=== PATIENT | male | born 1985 | race African-American/Black ===

== ENCOUNTER 2025-06-05 02:22 | Inpatient (IN) | payer SELFPAY ==
[~2025-06-05] VITALS: Ht 167.6 cm; Wt 63.5 kg
[2025-06-05] VITALS (7 sets, daily range): BP systolic 94–121; BP diastolic 59–79; PULSE 55–80; RESP 16–20; TEMP 36–36.7516; O2SAT 97–100
[2025-06-05 03:30] LABS: PLATELET 323 x1000/uL (130-400); RED BLOOD CELL COUNT 4.66 mill/uL (4.7-6.1); RED CELL DISTRIBUTION WIDTH 13.3 % (11.6-14.6)
[2025-06-05 03:44] LABS: CREATININE 1.1 mg/dL (0.6-1.3); UREA NITROGEN BLOOD 7 mg/dL (9-23)
[2025-06-05 03:45] LABS: PROTEIN TOTAL 7.2 g/dL (6.0-8.3)
[2025-06-05 03:46] LABS: ASPARTATE AMINOTRANSFERASE 32 IU/L (<34); BILIRUBIN DIRECT 0.1 mg/dL (<=3.0); BILIRUBIN TOTAL 0.5 mg/dL (0.1-1.0)
[2025-06-05] MEDS: ONDANSETRON 4MG ODT PO ONE (04:15)
[2025-06-05 04:19] LABS: BASOPHILS % 1.2 % (0.0-2.0); EOSINOPHILS % 0.7 % (0.0-5.0); HEMATOCRIT. 44.0 % (42.0-52.0); HEMOGLOBIN. 13.8 g/dL (14.0-18.0); LYMPHOCYTES % 31.7 % (20.0-50.0); MEAN PLATELET VOLUME 7.6 fl (7.4-10.4); MONOCYTES % 5.9 % (2.0-8.0); NEUTROPHILS % 60.5 % (40.0-76.0); PLATELET 305 x1000/uL (130-400); RED BLOOD CELL COUNT 4.61 mill/uL (4.7-6.1); RED CELL DISTRIBUTION WIDTH 13.3 % (11.6-14.6)
[2025-06-05 04:28] LABS: CREATININE 1.1 mg/dL (0.6-1.3); UREA NITROGEN BLOOD 6 mg/dL (9-23)
[2025-06-05] MEDS ORDERED: MORPHINE SULFATE 4 MG/ML INJ (FOR IV/IM USE) IM ONE (05:15)
[2025-06-05] MEDS: KETOROLAC 30MG/ML VIAL IM ONE (05:46)
[2025-06-05] MEDS: ONDANSETRON HCL 4MG/2ML INJ IV ONE (06:10)
[2025-06-05] MEDS: MORPHINE SULFATE 4 MG/ML INJ (FOR IV/IM USE) IV ONE (06:10)
[2025-06-05] MEDS ORDERED: IPRATROPIUM/ALBUTEROL 0.5-3(2.5)MG/3ML NEB NEB PRN (08:45)
[2025-06-05] MEDS ORDERED: ONDANSETRON HCL 4MG/2ML INJ IV PRN (08:45)
[2025-06-05] MEDS ORDERED: DOCUSATE SODIUM 100MG CAPSULE PO PRN (08:45)
[2025-06-05] MEDS ORDERED: MAGNESIUM/ALUMINUM HYDROXIDE/SIMETHICONE 30ML UDC PO PRN (08:45)
[2025-06-05] MEDS ORDERED: NA PHOS,M-B/NA PHOS,DI-BA ENEMA 118ML PR PRN (08:45)
[2025-06-05] MEDS ORDERED: ACETAMINOPHEN 325MG TABLET PO PRN (08:45)
[2025-06-05] MEDS ORDERED: DIPHENHYDRAMINE 50MG/ML VIAL IV PRN (08:45)
[2025-06-05] MEDS ORDERED: GUAIFENESIN 200MG/10ML SUGAR FREE UDC PO PRN (08:45)
[2025-06-05] MEDS ORDERED: CLONIDINE 0.1MG TABLET PO PRN (08:45)
[2025-06-05] MEDS: METRONIDAZOLE 500 MG PREMIX 100 ML IV SCH (09:00)
[2025-06-05] MEDS: SODIUM CHLORIDE 0.45% 1,000 ML IV SCH (09:37)
[2025-06-05] MEDS: ONDANSETRON HCL 4MG/2ML INJ IV PRN (09:41)
[2025-06-05] MEDS: LEVOFLOXACIN 500MG PREMIX 100 ML IV SCH (11:23)
[2025-06-05] MEDS: HYDROCODONE/ACETAMINOPHEN 5/325MG TABLET PO PRN (15:10)
[2025-06-05] MEDS ORDERED: MORPHINE SULFATE 2 MG/ML INJ (NOT FOR IM USE) IV SCH (21:00)
[2025-06-05] MEDS: SODIUM CHLORIDE 0.9% 1,000 ML IV ONE (22:28)
[2025-06-05] MEDS: PANTOPRAZOLE SODIUM 40 MG/VIAL IV SCH (22:28)
[2025-06-05] MEDS: KETOROLAC 30MG/ML VIAL IV NR (22:28)
[2025-06-05] MEDS: HYDROCODONE/ACETAMINOPHEN 5/325MG TABLET PO NR (23:48)
[2025-06-05] MEDS: SODIUM CHLORIDE 0.9% 1,000 ML IV NR (23:49)
[2025-06-06] VITALS: BP 96/48; PULSE 60; RESP 19; TEMP 36.4; O2SAT 98
[2025-06-06 00:48] VITALS: BP 92/55
[2025-06-06 01:19] VITALS: BP 95/56
[2025-06-06 04:00] VITALS: BP 94/50; PULSE 61; RESP 19; TEMP 36.3; O2SAT 97
[2025-06-06 08:00] VITALS: BP 97/52; PULSE 60; RESP 18; TEMP 36.4; O2SAT 100
== END 2025-06-06 12:40 | disposition left against medical advice (07) | DRG 244 ==
LOC: ER 02:22 → 6EST 05:42 → EDBEDREQTM 05:46 → EDBEDREQ 05:46 → ENRESERV 06:02
PROVIDERS: ADMIT Internal Medicine; ATTEND Internal Medicine
DX: K57.32 Diverticulitis of large intestine without perforation or abscess without bleeding (principal); E86.0 Dehydration; Z53.29 Procedure and treatment not carried out because of patient's decision for other reasons; R65.10 Systemic inflammatory response syndrome (SIRS) of non-infectious origin without acute organ dysfunction; E87.8 Other disorders of electrolyte and fluid balance, not elsewhere classified; Z79.899 Other long term (current) drug therapy
CPT/HCPCS: 36415; 74176; 80048; 80076; 83735; 85025; 85027; 93005; 99285; A4606; J1885; J1956; J2270; J2405; J2470; J3490; Q0162